=== PATIENT | male | born 1945 | race Caucasian/White ===

== ENCOUNTER 2017-06-11 13:19 | Emergency (ER) | payer MEDICARE ==
--- NOTE | 2017-06-11 13:43 | Emergency Department Record ---
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 The symptoms lasted about 30 minutes and resolved when he had oxygen placed. The patient then had an EKG performed and was found to be in Afib so he was brought over to the ER. The patient denied any CP, SOB, SHIN, arm or leg numbness, weakness, or any visual changes. He did have a pacemaker placed 3 weeks ago but had some complications and had it redone 2 weeks ago. The patient states he has had some Afib on his recording device in the last 2 weeks and was in it for 9 hours once. MD Complaint: Dizziness, Lightheadedness Onset/Timin -: Hour(s) Timing: Gradual onset Description: Lightheadedness, Near-syncope History of Same: Yes - Monica Coma Scale Eye Response: (4) Open spontaneously Motor Response: (6) Obeys commands Verbal Response: (5) Oriented [place] Total: 15 - Related Data Home Medications Medication Instructions Recorded Confirmed Last Taken Aspirin [Aspirin EC] 81 mg PO DAILY 06/11/17 06/11/17 1 Day Ago ~06/10/17 Atorvastatin Calcium 40 mg PO DAILY 06/11/17 06/11/17 1 Day Ago ~06/10/17 Cholecalciferol (Vitamin D3) 1,000 unit PO DAILY 06/11/17 06/11/17 1 Day Ago [Vitamin D3] ~06/10/17 Finasteride [Proscar] 5 mg PO DAILY 06/11/17 06/11/17 1 Day Ago ~06/10/17 Losartan/Hydrochlorothiazide 1 each PO DAILY 06/11/17 06/11/17 1 Day Ago [Losartan-Hctz 50-12.5 mg Tab] ~06/10/17 Multivitamin [Multi-Vitamin Daily] 1 each PO DAILY 06/11/17 06/11/17 1 Day Ago ~06/10/17 Omeprazole 20 mg PO DAILY 06/11/17 06/11/17 1 Day Ago ~06/10/17 Tamsulosin HCl [Flomax] 0.4 mg PO DAILY 06/11/17 06/11/17 1 Day Ago ~06/10/17 Ubidecarenone [Co Q-10] 30 mg PO DAILY 06/11/17 06/11/17 1 Day Ago ~06/10/17 Allergies Allergy/AdvReac Type Severity Reaction Status Date / Time No Known Drug Allergies Allergy Verified 06/11/17 13:32 Travel Screening - Travel/Exposure Within Last 30 Days Have you traveled within the last 30 days?: No - Travel/Exposure Within Last Year Have you traveled outside the [place] in the last year?: No - Additonal Travel Details Have you been exposed to anyone with a communicable illness?: No - Travel Symptoms Symptom Screening: None Review of Systems Constitutional: Denies: Chills, Fever Eyes: Denies: Eye discharge ENT: Denies: Congestion Respiratory: Denies: Cough, Dyspnea Cardiovascular: Reports: Arrhythmia. Denies: Chest pain Past Medical History - SOCIAL HISTORY Smoking Status: Former smoker Alcohol Use: Occasional Drug Use: None - RESPIRATORY Hx Respiratory Disorders: No - CARDIOVASCULAR Hx Irregular Heartbeat: Yes Hx Palpitations: Yes Hx Pacemaker/Defib: Yes - NEURO Hx Neuro Disorders: No - GI Hx GI Disorders: No - Hx Genitourinary Disorders: No - ENDOCRINE Hx Diabetes: No Hx Thyroid Disease: No - MUSCULOSKELETAL Hx Arthritis: Yes - PSYCH Hx Psych Problems: No - HEMATOLOGY/ONCOLOGY Hx Hematology/Oncology Disorders: No Hx Cancer: No Family Medical History Any Significant Family History?: Yes Physical Exam - General General Appearance: Alert, Oriented x3, Cooperative, No acute distress - Head Head exam: Atraumatic, Normocephalic, Normal inspection - Eye Eye exam: Normal appearance, PERRL - Neck Neck exam: Normal inspection, Full ROM. negative: Tenderness - Respiratory Respiratory exam: Normal lung sounds bilaterally. negative: Respiratory distress - Cardiovascular Cardiovascular Exam: Irregular rhythm. negative: Regular rate, Normal rhythm, Diastolic murmur - GI/Abdominal GI/Abdominal exam: Soft, Normal bowel sounds. negative: Tenderness - Extremities Extremities exam: Normal inspection, Full ROM, Normal capillary refill. negative: Tenderness - Back Back exam: Reports: Normal inspection, Full ROM. Denies: Muscle spasm, Rash noted, Tenderness - Neurological Neurological exam: Alert. negative: Motor sensory deficit Course Vital Signs 06/11/17 13:22 Temperature 97.9 F Pulse Rate 94 H Respiratory 18 Rate Blood Pressure 126/91 Pulse Ox 95 - Reevaluation(s) Reevaluation #1: The patient is doing very well at this time. He denies any pain or discomfort and is resting comfortably. His HR is repeatedly around 90 at rest and due to that I do not feel he needs any HR control. Because of the new onset Afib I did discuss the case with Dr. Bonilla from [facility] and he does accept the patient as a direct admission to [facility]. 06/11/17 14:50 Medical Decision Making - Data Complexity MDM Data: Labs Ordered and/or Reviewed, X-Ray Ordered and/or Reviewed, EKG Ordered and/or Reviewed - Lab Data Result diagrams: 06/11/17 13:25 06/11/17 13:25 - EKG Data -: EKG Interpreted by Me (Afib in the 90's. No ischemic changes.) - Radiology Data Radiology results: Report reviewed (CXR; CMG, O/W neg.) Disposition Disposition: Transfer Clinical Impression: New onset a-fib Disposition: Acute Care Hospital Transfer Transfer To: [facility] Reason For Transfer: Electrophysiology. Accepting Physician: Irene. Time Discussed w/Accepting Physician: 14:53 Condition: (2) Stable Forms: Patient Portal Access Time of Disposition: 14:53 Quality - Quality Measures Quality Measures: N/A - Blood Pressure Screening View Details: Yes Does Patient Have Any of the Following: No Blood Pressure Classification: Hypertensive Reading Systolic Measurement: 126 Diastolic Measurement: 91 Screening for High Blood Pressure: < Pre-Hypertensive BP, F/U Documented > [ [id number]] Pre-Hypertensive Follow-up Interventions: Referral to alternative/primary care provider.
[2017-06-11 13:50] LABS: BASO % 0.2 % (0-6); GRAN % 74.3 % (47-80); HEMATOCRIT 46.8 % (42.0-52.0); HEMOGLOBIN 16.1 gm/dl (14.0-18.0); LYMPH % 15.2 % (16-45); MEAN CELL VOLUME 92.3 fl (81-97); MEAN CORPUSCULAR HEMOGLOBIN 31.8 pg (27-33); MEAN CORPUSCULAR HGB CONC 34.4 g/dl (32-36); MEAN PLATELET VOLUME 12.2 fl (7.4-10.4); MONO % 9.3 % (0-9); PLATELET COUNT 191 K/uL (130-400); RED BLOOD COUNT 5.07 M/uL (4.40-5.70); RED CELL DISTRIBUTION WIDTH 13.7 % (11.5-14.5); WHITE BLOOD COUNT W/O DIFF 8.8 K/uL (4.2-12.2)
[2017-06-11 14:07] LABS: BLOOD UREA NITROGEN 22 mg/dL (8-23); CREATINE PHOSPHOKINASE 106 U/L (39-308); CREATININE 1.2 mg/dL (0.7-1.2); EST GLOMERULAR FILTRATION RATE > 60 mL/min; GLUCOSE,RANDOM 119 mg/dL (74-109)
[2017-06-11 14:14] LABS: CKMB 2.9 ng/mL (<6.73)
[2017-06-11 14:16] LABS: INR 1.03; PARTIAL THROMBOPLASTIN TIME 26.1 SECONDS (24.5-39.1); PROTHROMBIN TIME (PATIENT) 11.1 SECONDS (9.5-12.1)
[2017-06-11 14:22] LABS: THYROID STIMULATING HORMONE 1.96 uIU/mL (0.270-4.20)
--- NOTE | 2017-06-12 19:06 | RADIOLOGY REPORT ---
EXAM: CHEST 2 VIEWS HISTORY: DIFFICULTY IN BREATHING. TECHNIQUE: Frontal and lateral views of the chest were performed. FINDINGS: There is cardiomegaly. There is a left-sided pacing device in place. No pulmonary vascular congestion. No infiltrate or pleural effusion. The osseous structures are normal. IMPRESSION: CARDIOMEGALY. NO ACUTE PROCESS. JOB NUMBER: [id number] MTDD
== END 2017-06-11 18:01 | disposition short-term general hospital (02) ==
LOC: ER 13:19
DX: I48.91 Unspecified atrial fibrillation (principal); R06.00 Dyspnea, unspecified; R42 Dizziness and giddiness; Z87.891 Personal history of nicotine dependence
CPT/HCPCS: 71020; 80048; 82550; 82553; 84443; 84484; 85025; 85610; 85730; 93005; 93010; 99285